=== PATIENT | male | born 1980 | race Caucasian/White ===

== ENCOUNTER 2017-06-16 16:59 | Emergency (ER) | payer BC ==
--- NOTE | 2017-06-16 17:18 | EDM.PDOC ---
ED HPI GENERAL MEDICAL PROBLEM - General Chief Complaint: Upper Extremity Injury/Pain Stated Complaint: PAIN LT ANKLE Time Seen by Provider: 06/16/17 17:15 Source of Information: Reports: Patient History Limitations: Reports: No Limitations - History of Present Illness INITIAL COMMENTS - FREE TEXT/NARRATIVE: HISTORY AND PHYSICAL: History of present illness: Patient is a 36-year-old male who presents to the emergency room today with complaints of left ankle pain. He states he was coming down from the attic when he stepped down wrong and rolled his left ankle. Since that time he has had increased swelling and pain. Denies any numbness or tingling to the affected extremity. Review of systems: As per history of present illness and below otherwise all systems reviewed and negative. Past medical history: As per history of present illness and as reviewed below otherwise noncontributory. Surgical history: As per history of present illness and as reviewed below otherwise noncontributory. Social history: No reported history of drug or alcohol abuse. Family history: As per history of present illness and as reviewed below otherwise noncontributory. Physical exam: General: Developed and well-nourished 36-year-old male. Alert and oriented. Nontoxic appearing and in no acute distress. HEENT: Atraumatic, normocephalic, pupils equal and reactive bilaterally, negative for conjunctival pallor or scleral icterus, mucous membranes moist, throat clear, neck supple, nontender, trachea midline. No drooling or trismus noted. No meningeal signs Lungs: Clear to auscultation, breath sounds equal bilaterally, chest nontender. Heart: S1S2, regular rate and rhythm without overt murmur Abdomen: Soft, nondistended, nontender. Negative for masses or hepatosplenomegaly. Negative for costovertebral tenderness. Pelvis: Stable nontender. Genitourinary: Deferred. Rectal: Deferred. Skin: Intact, warm, dry. No lesions or rashes noted. Extremities: Moves all extremities per self without difficulty or deficits. Soft tissue swelling to the lateral and medial right ankle. Strong pedal pulse. Capillary refill less than 3 seconds. Does not appear to have any Achilles tendon involvement. negative for cords or calf pain. Neurovascular unremarkable. Neuro: Awake, alert, oriented. Cranial nerves II through XII unremarkable. Cerebellum unremarkable. Motor and sensory unremarkable throughout. Exam nonfocal. Notes: X-ray shows no evidence of fracture or dislocation. We'll place him in a stirrup splint and crutches. Supportive care measures were reviewed. Encouraged him to follow-up with or so next week. He voices understanding and is agreeable to plan of care. He denies any questions at this time Diagnostics: Xray Therapeutics: Ice, Stirrup Splint, Crutches Impression: Left ankle injury Plan: 1. Rest, ice, elevate the affected extremity. 2. Tylenol and/or ibuprofen as needed for pain management. 3. Please use the stirrup splint and crutches over the next 2-5 days. 4. Follow-up with the orthopedic provider next week. Return to the ED as needed and as discussed. Definitive disposition and diagnosis as appropriate pending reevaluation and review of above. left ankle Pain Score (Numeric/FACES): 7 - Related Data Allergies Allergy/AdvReac Type Severity Reaction Status Date / Time No Known Allergies Allergy Verified 06/16/17 17:07 Home Meds: Home Meds Albuterol [Proair HFA] 2 puff INH ASDIRECTED PRN 05/10/15 [History] Fluticasone/Salmeterol [Advair 250-50 Diskus] 2 each IH DAILY 06/16/17 [History] Past Medical History HEENT History: Reports: None Cardiovascular History: Reports: None Respiratory History: Reports: Asthma Gastrointestinal History: Reports: None Genitourinary History: Reports: None Musculoskeletal History: Reports: None Neurological History: Reports: None Psychiatric History: Reports: None Endocrine/Metabolic History: Reports: None Hematologic History: Reports: None Immunologic History: Reports: None Oncologic (Cancer) History: Reports: None Dermatologic History: Reports: None - Infectious Disease History Infectious Disease History: Reports: Chicken Pox, MRSA Social & Family History - Family History Family Medical History: Noncontributory - Tobacco Use Smoking Status *Q: Never Smoker - Alcohol Use Days Per Week of Alcohol Use: 7 Number of Drinks Per Day: 2 Total Drinks Per Week: 14 - Recreational Drug Use Recreational Drug Use: No Review of Systems - Review of Systems Review Of Systems: ROS reveals no pertinent complaints other than HPI. ED EXAM, GENERAL - Physical Exam Exam: See Below (See dictation) Course - Vital Signs Last Recorded V/S: Last Vital Signs Temp 98.2 F 06/16/17 17:08 Pulse 80 06/16/17 17:08 Resp 18 06/16/17 17:08 BP 147/93 H 06/16/17 17:08 Pulse Ox 97 06/16/17 17:08 - Orders/Labs/Meds Orders: Active Orders 24 hr Category Date Time Status Ankle Min 3V Lt [CR] Stat Exams 06/16/17 17:13 Taken DME for Discharge [COMM] Stat Oth 06/16/17 18:05 Ordered Departure - Departure Time of Disposition: 18:12 Disposition: Home, Self-Care 01 Clinical Impression: Left ankle injury Qualifiers: Encounter type: initial encounter Qualified Code(s): S99.912A - Unspecified injury of left ankle, initial encounter - Discharge Information Referrals: Waqas Fleming MD [Primary Care Provider] - Forms: ED Department Discharge Additional Instructions: The following information is given to patients seen in the emergency department who are being discharged to home. This information is to outline your options for follow-up care. We provide all patients seen in our emergency department with a follow-up referral. The need for follow-up, as well as the timing and circumstances, are variable depending upon the specifics of your emergency department visit. If you don't have a primary care physician on staff, we will provide you with a referral. We always advise you to contact your personal physician following an emergency department visit to inform them of the circumstance of the visit and for follow-up with them and/or the need for any referrals to a consulting specialist. The emergency department will also refer you to a specialist when appropriate. This referral assures that you have the opportunity for follow-up care with a specialist. All of these measure are taken in an effort to provide you with optimal care, which includes your follow-up. Under all circumstances we always encourage you to contact your private physician who remains a resource for coordinating your care. When calling for follow-up care, please make the office aware that this follow-up is from your recent emergency room visit. If for any reason you are refused follow-up, please contact the [facility] Emergency Department at and asked to speak to the emergency department charge nurse. [facility] Primary Care [address] [place] [id number] [facility] Specialty Care - Orthopedic Clinic Professional [address], [address] [place] [address] 1. Rest, ice, elevate the affected extremity. 2. Tylenol and/or ibuprofen as needed for pain management. [place] for moderate to sever pain. No driving with this medication as it may cause drowsiness. 3. Please use the stirrup splint and crutches over the next 2-5 days. 4. Follow-up with the orthopedic provider next week. Return to the ED as needed and as discussed. - My Orders Last 24 Hours: My Active Orders 06/16/17 18:05 DME for Discharge [COMM] Stat - Assessment/Plan Last 24 Hours: My Active Orders 06/16/17 18:05 DME for Discharge [COMM] Stat
[2017-06-16 18:40] VITALS: BP 125/73
--- NOTE | 2017-06-17 13:50 | CR ---
EXAM DATE: 06/16/17 PATIENT'S AGE: 36 Patient: CALVIN DIXON Facility: [place], [place] Site . Site : [id number] Study: XRay Extremity Left [id number]/15/2018 5:37:07 PM Ordering Physician: Doctor Quick Final Report: 3 VIEWS left ankle INDICATION: Injury. IMPRESSION: Minimal spur at the medial malleolus. No visualized fracture. Alignments anatomic. Joint spaces unremarkable. Dictated by Calderon Hines MD @ Jun 16 2017 5:53PM (Electronic Signature) Report Signed by Proxy. SINGH
== END 2017-06-16 18:40 | disposition home or self-care (01) ==
LOC: MW.ED 16:59
DX: S99.912A Unspecified injury of left ankle, initial encounter (principal); J45.909 Unspecified asthma, uncomplicated; Z79.899 Other long term (current) drug therapy; X50.1XXA Overexertion from prolonged static or awkward postures, initial encounter
CPT/HCPCS: 73610-26-LT; 73610-LT; 99283

== ENCOUNTER 2019-02-24 21:29 | Emergency (ER) | payer OTHER ==
[2019-02-24] MEDS ORDERED: Diphtheria,Pertussis(Acell),Tetanus Vaccine 0.5 ML Syringe IM ONE (21:31)
[2019-02-24 22:01] VITALS: BP 163/102; PULSE 85
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
== END 2019-02-24 22:23 | disposition home or self-care (01) ==
LOC: MW.ED 21:29
DX: Z77.21 Contact with and (suspected) exposure to potentially hazardous body fluids (principal); J45.909 Unspecified asthma, uncomplicated; Z79.899 Other long term (current) drug therapy; Z23 Encounter for immunization
CPT/HCPCS: 36415; 86706; 86803; 87340; 87389; 90471; 90715; 99282; 99283-25

== ENCOUNTER 2019-04-29 20:39 | Emergency (ER) | payer OTHER ==
--- NOTE | 2019-04-29 20:53 | EDM.PDOC ---
ED [facility] GENERAL MEDICAL PROBLEM - General Chief Complaint: Head Injury Stated Complaint: FELL Time Seen by Provider: 04/29/19 20:49 Source of Information: Reports: Patient, Family History Limitations: Reports: No Limitations - History of Present Illness INITIAL COMMENTS - FREE TEXT/NARRATIVE: Patient is 38-year-old male with no significant past medical history presenting with chief complaint of head trauma. Patient was curling earlier today slipped on the ice and hit the back of his head. Suffered no loss of consciousness. He was present with father who witnessed the fall. Soon after the fall the patient exhibited some confusion and repetitive questioning. Patient had no episodes of vomiting. Patient complains of headache right now but no other bodily injury. Patient's was called by father who brought the patient into the emergency room. Pmhx: None Pshx: None Family Hx: noncontributory Smoking history? no Etoh use? none Drug use? none In addition to that documented in the HPI above, the additional ROS was obtained : Constitutional: Denies fevers or chills Eyes: Denies vision changes ENMT: Denies sore throat CV: Denies chest pain Resp: Denies SOB GI: Denies vomiting or diarrhea : Denies painful urination MSK: No traumatic injuries to the joints. Skin: Denies new rashes Neuro: Denies new numbness or tingling or weakness Endocrine: Denies unexpected weight loss Heme: Denies bleeding disorders GENERAL: Lying on bed grabbing at his head with hand SKIN: Warm and well perfused. No rashes, bruises, discolorations or abrasions. HEAD: Atraumatic, normocephalic without edema, discoloration or evidence of trauma. Facial bones without deformities or tenderness. EYES: PERRL. No scleral icterus or conjunctival injection. Extraocular muscles intact without nystagmus or diplopia. No proptosis or enophthalmos. EARS: Normal appearing pinnae. No hemotympanum. NOSE: No discharge, tenderness, laxity. No nasal septal hematoma. MOUTH: No malocclusion or trismus. Moist mucus membranes without blood. Posterior pharynx without erythema or exudate. NECK: Trachea midline. No discolorations or edema. No midline cervical spinal tenderness. Full range of motion of the neck. CV: Regular rate and rhythm, Normal s1 and s2. No murmurs, rubs, or gallops. PV: Radial pulses 2+ bilaterally and symmetric. Dorsalis pedis pulses 2+ bilaterally and symmetric. 2+ capillary refill. No extremity edema. CHEST: No abrasions or ecchymosis. Chest symmetric with respirations. No chest wall tenderness. No crepitus. No step offs. Lungs are clear to auscultation bilaterally. No rales, rhonchi, wheezing or stridor. ABDOMEN: No ecchymosis or abrasions. Soft, nondistended, nontender. Bowel tones normoactive. No masses or organomegaly. BACK: No abrasions, skin openings, or ecchymosis. Spine without bony tenderness , no step offs. PELVIC: Pelvis stable, nontender to lateral compression and palpation of symphysis pubis. MSK: No gross deformities or discolorations or lesions. Tolerates full range of motion of extremities without tenderness. NEURO: Alert and oriented to person and not to date or time or location. GCS 15. CN II-XII intact. Sensation grossly intact. Strength 5/5 in bilateral UE and LE. Assessment and plan: Patient is 38-year-old male with history of head trauma complaining of headache. Patient cervical spine is cleared by German CT rules. Patient is only complaining of headache and has some mild confusion which has improved while in the emergency department. CT of the brain was negative for any acute intracranial hemorrhage. Patient will be discharged home with the diagnosis of likely concussion. 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 Patient educated and given return precautions. - Related Data Allergies Allergy/AdvReac Type Severity Reaction Status Date / Time No Known Allergies Allergy Verified 02/24/19 21:51 Home Meds: Home Meds Albuterol [Proair HFA] 2 puff INH ASDIRECTED PRN 05/10/15 [History] Fluticasone/Salmeterol [Advair 250-50 Diskus] 2 each IH DAILY 06/16/17 [History] Past Medical History HEENT History: Reports: None Cardiovascular History: Reports: None Respiratory History: Reports: Asthma Gastrointestinal History: Reports: None Genitourinary History: Reports: None Musculoskeletal History: Reports: None Neurological History: Reports: None Psychiatric History: Reports: None Endocrine/Metabolic History: Reports: None Hematologic History: Reports: None Immunologic History: Reports: None Oncologic (Cancer) History: Reports: None Dermatologic History: Reports: None - Infectious Disease History Infectious Disease History: Reports: Chicken Pox, MRSA Social & Family History - Family History Family Medical History: Noncontributory ED ROS GENERAL - Review of Systems Review Of Systems: See Below ED EXAM, HEAD INJURY - Physical Exam Exam: See Below Course - Vital Signs Last Recorded V/S: Last Vital Signs Temp 36.6 C 04/29/19 20:40 Pulse 86 04/29/19 20:40 Resp 18 04/29/19 20:40 BP 171/99 H 04/29/19 20:40 Pulse Ox 98 04/29/19 20:40 - Orders/Labs/Meds Meds: Medications Discontinued Medications Generic Name Dose Route Start Last Admin Trade Name Finnq PRN Reason Stop Dose Admin Ketorolac Tromethamine 30 mg 04/29/19 21:38 04/29/19 21:57 Toradol IM 04/29/19 21:39 30 mg ONETIME ONE Administration Departure - Departure Time of Disposition: 22:01 Disposition: Home, Self-Care 01 Clinical Impression: Concussion injury of brain - Discharge Information Instructions: Concussion, Adult Referrals: Jersey Shook MD [Primary Care Provider] - Forms: ED Department Discharge Sepsis Event Note - Focused Exam Vital Signs: Vital Signs Temp Pulse Resp BP Pulse Ox 04/29/19 20:40 36.6 C 86 18 171/99 H 98 Date Exam was Performed: 04/29/19 Time Exam was Performed: 21:59
--- NOTE | 2019-04-29 21:23 | CT ---
INDICATION: Trauma TECHNIQUE: CT head without contrast. COMPARISON: MRI brain 06/18/2008 FINDINGS: CSF spaces: Within normal limits for age. Brain parenchyma: The wyatt-white differentiation is normal. No sign of mass, hemorrhage, or midline shift. Skull base and calvarium: The visualized paranasal sinuses and mastoid air cells demonstrate no acute or significant findings. The visualized orbits are grossly unremarkable. No skull fractures. IMPRESSION: Unremarkable noncontrast head CT. Please note that all CT scans at this facility use dose modulation, iterative reconstruction, and/or weight-based dosing when appropriate to reduce radiation dose to as low as reasonably achievable. Dictated by Waqas Ramon MD @ Apr 29 2019 9:11PM Signed by Dr. Waqas Ramon @ Apr 29 2019 9:22PM
[2019-04-29] MEDS ORDERED: Ketorolac 30 MG/ML SDV IM ONE (21:38)
[2019-04-29 22:39] VITALS: BP 141/91; PULSE 80
== END 2019-04-29 22:41 | disposition home or self-care (01) ==
LOC: MW.ED 20:39
DX: S06.0X9A Concussion with loss of consciousness of unspecified duration, initial encounter (principal); J45.909 Unspecified asthma, uncomplicated; W00.0XXA Fall on same level due to ice and snow, initial encounter
CPT/HCPCS: 70450; 96372; 99284; J1885

== ENCOUNTER 2019-08-03 19:05 | Emergency (ER) | payer OTHER ==
[2019-08-03] MEDS ORDERED: Bupivacaine 0.5% 30 ML SDV INFILT ONE (19:36)
--- NOTE | 2019-08-03 19:40 | EDM.PDOC ---
ED HPI GENERAL MEDICAL PROBLEM - General Chief Complaint: Head Injury Stated Complaint: NOSE BLEED Time Seen by Provider: 08/03/19 19:10 Source of Information: Reports: Patient History Limitations: Reports: No Limitations - History of Present Illness INITIAL COMMENTS - FREE TEXT/NARRATIVE: This patient is a 38-year-old male with no pertinent past medical history presenting with a facial injury. Patient was playing a softball match when he was struck in the nose by a line drive approximately 1 hour prior to arrival. The ball struck him in the center of his nose. He did not fall to the ground or lose consciousness. He arrives to the emergency department complaining of pain and swelling to the nose with some bilateral epistaxis. He denies any visual disturbance, headache, facial numbness or weakness, or extremity numbness or weakness. No medications prior to arrival, no other complaints. Tetanus immunization status is up-to-date per the patient. - Related Data Allergies Allergy/AdvReac Type Severity Reaction Status Date / Time No Known Allergies Allergy Verified 08/03/19 19:29 Home Meds: Home Meds Albuterol [Proair HFA] 2 puff INH ASDIRECTED PRN 05/10/15 [History] Fluticasone Propion/Salmeterol [Advair 250-50 Diskus] 2 each IH DAILY 06/16/17 [ History] Past Medical History - Past Health History Medical/Surgical History: Denies Medical/Surgical History HEENT History: Reports: None Cardiovascular History: Reports: None Respiratory History: Reports: Asthma Gastrointestinal History: Reports: None Genitourinary History: Reports: None Musculoskeletal History: Reports: None Neurological History: Reports: None Psychiatric History: Reports: None Endocrine/Metabolic History: Reports: None Insulin Pump Model and Weight Reduction Specialist: NA Hematologic History: Reports: None Immunologic History: Reports: None Oncologic (Cancer) History: Reports: None Dermatologic History: Reports: None - Infectious Disease History Infectious Disease History: Reports: None - Past Surgical History Head Surgeries/Procedures: Reports: None Social & Family History - Family History Family Medical History: Noncontributory - Tobacco Use Smoking Status *Q: Former Smoker Used Tobacco, but Quit: Yes Month/Year Tobacco Last Used: 2007 - Caffeine Use Caffeine Use: Reports: Coffee - Recreational Drug Use Recreational Drug Use: No ED ROS GENERAL - Review of Systems Review Of Systems: See Below HEENT: Reports: Nosebleed, Nose Pain. Denies: Ear Discharge, Ear Pain, Eye Discharge, Eye Pain, Sinus Problem, Vision Change Skin: Reports: Wound Neurological: Denies: Confusion, Headache, Numbness, Seizure, Syncope, Tingling , Trouble Speaking, Change in Speech, Gait Disturbance ED EXAM, HEAD INJURY - Physical Exam Exam: See Below Text/Narrative:: Vital signs reviewed. Nursing notes reviewed. Constitutional: Awake, alert, non-distressed. Eyes: EOMI, conjunctiva normal, no discharge, no scleral icterus. Ears, Nose, Throat: External ears and normal, moist oral mucosa. Edema and ecchymosis to the center of the nose, which does not appear deviated. Dried blood in both nostrils. No evidence of septal hematoma. No exposed cartilage. TMs clear bilaterally. No raccoons eyes or lopez sign. One approximately 0.7 cm horizontal linear laceration to the right side of the bridge of the nose , 1 approximately 0.6 cm vertical linear laceration to the center of the nose. Cardiovascular: 2+ radial pulse, capillary refill less than 2 seconds. Pulmonary: normal work of breathing, no accessory muscle use. Musculoskeletal: No deformities. Integumentary: Appropriate color for ethnicity, warm, dry, no pallor or jaundice , no rash. Neurologic: Alert, answering questions appropriately, normal speech, no facial droop, moving all extremities well. Cranial nerves II through XII intact. No evidence of facial anesthesia. Psychiatric: Appropriate mood and affect, normal thought process. ED LACERATION/WOUND & ROSY PROC - Laceration/Wound Repair Anterior Nose Lac/wound length in cm: 1.3 Appearance: Superficial Distal NVT: Neuro & Vascular Intact Anesthetic Type: Local Local Anesthesia - Bupivicaine (Marcaine): 0.5% Plain Local Anesthetic Volume: 2cc Skin Prep: Saline Exploration/Debridement/Repair: Wound Explored, In a Bloodless Field, No Foreign Material Found Closed with: Sutures Suture Size: 5-0 # of Sutures: 3 Drain Placement: No Sterile Dressing Applied: Nurse Tetanus Status Addressed: Yes Complications: No Course - Vital Signs Text/Narrative:: Patient hemodynamically stable, afebrile, well-appearing, looks nontoxic. Differential diagnosis includes but is not limited to: Nasal bone fracture, septal hematoma, facial bone fractures, sinus fractures, dental trauma, nerve injury, etc. CT maxillofacial study demonstrated a right nasal bone fracture and a right nasal septal fracture, but no evidence of any other facial bone or sinus fractures. No neurologic deficits noted on examination of the cranial nerves. No dental trauma or malocclusion, normal movement of the jaw. Able to breathe through both nostrils, normal phonation, no evidence of respiratory compromise, handling secretions well. Tetanus immunization status is up-to-date per the patient. Underwent laceration repair as detailed in procedure documentation, this was uncomplicated. We will plan to discharge home with instructions for 5 to 7-day suture removal and follow-up with ENT clinic as an outpatient. Over-the- counter acetaminophen and ibuprofen for pain. Strict emergency department return precautions were provided, patient indicated understanding. All questions were answered prior to departure. Discharged in good condition. - Orders/Labs/Meds Orders: Active Orders 24 hr Category Date Time Status Procedure Tray at Bedside [RC] ASDIRECTED Care 08/03/19 19:36 Active Meds: Medications Discontinued Medications Generic Name Dose Route Start Last Admin Trade Name Marisa PRN Reason Stop Dose Admin Bupivacaine HCl 10 ml 08/03/19 19:36 Marcaine 0.5% INFILT 08/03/19 19:37 ONETIME ONE Bupivacaine HCl Confirm 08/03/19 19:49 Sensorcaine-Mpf 0.5% Administered 08/03/19 19:50 Dose 10 ml .ROUTE .STK-MED ONE Departure - Departure Time of Disposition: 21:00 Disposition: Home, Self-Care 01 Condition: Good Clinical Impression: Laceration of nose without foreign body Qualifiers: Encounter type: initial encounter Qualified Code(s): S01.21XA - Laceration without foreign body of nose, initial encounter Nasal bone fracture Qualifiers: Encounter type: initial encounter Fracture type: closed Qualified Code(s): S02.2XXA - Fracture of nasal bones, initial encounter for closed fracture Nasal septum fracture Qualifiers: Encounter type: initial encounter Fracture type: closed Qualified Code(s): S02.2XXA - Fracture of nasal bones, initial encounter for closed fracture - Discharge Information *PRESCRIPTION DRUG MONITORING PROGRAM REVIEWED*: Not Applicable *COPY OF PRESCRIPTION DRUG MONITORING REPORT IN PATIENT BUDDY: Not Applicable Instructions: Laceration Care, Adult, Nasal Fracture, Sutured Wound Care Referrals: [facility] - Family Practice [Provider Group] - 1 Week (As needed) Forms: ED Department Discharge Additional Instructions: Shahid Acosta MD (ENT Surgeon) - Closest available. Follow-up in 1 to 2 weeks as needed for nasal bone and nasal septal fractures. [address] [place] [address] P: [phone] F: [phone] Thank you for choosing the [facility] emergency department in [place] for your medical needs today. It was a pleasure caring for you. You were seen in the emergency department for nasal injury. Your CT scans demonstrated fractures of your nasal bone and your nasal septum. Sutures were placed and will need to be removed in 5 to 7 days. I recommend over-the- counter acetaminophen and ibuprofen for pain. I would follow-up with an ENT surgeon the next 1 to 2 weeks for follow-up care of your nasal fractures. Please return the emergency department immediately if your symptoms worsen or if you feel worse. The following information is given to patients seen in the emergency department who are being discharged. This information is to outline your options for follow -up care. We provide all patients seen in our emergency department with a follow -up referral. The need for follow-up, as well as the timing and circumstances, are variable depending upon the specifics of your emergency department visit. If you don't have a primary care physician on staff, we will provide you with a referral. We always advise you to contact your personal physician following an emergency department visit to inform them of the circumstance of the visit and for follow-up with them and/or the need for any referrals to a consulting specialist. The emergency department will also refer you to a specialist when appropriate. This referral assures that you have the opportunity for follow-up care with a specialist. All of these measure are taken in an effort to provide you with optimal care, which includes your follow-up. Under all circumstances we always encourage you to contact your private physician who remains a resource for coordinating your care. When calling for follow-up care, please make the office aware that this follow-up is from your recent emergency room visit. If for any reason you are refused follow-up, please contact the [facility] Emergency Department at and asked to speak to the emergency department charge nurse. If you do not have a primary care physician that is caring for you, you can contact these clinics below to set up an appointment to establish care: [facility] - [facility] [address] [place] [id number] [facility] [address] [place] [id number] Sepsis Event Note - Focused Exam Date Exam was Performed: 08/03/19 Time Exam was Performed: 20:58 - My Orders Last 24 Hours: My Active Orders 08/03/19 19:36 Procedure Tray at Bedside [RC] ASDIRECTED - Assessment/Plan Last 24 Hours: My Active Orders 08/03/19 19:36 Procedure Tray at Bedside [RC] ASDIRECTED
[2019-08-03] MEDS ORDERED: Bupivacaine 0.5% 10 ML SDV ONE (19:49)
--- NOTE | 2019-08-03 20:19 | CT ---
CT maxillofacial Technique: Multiple axial sections were obtained from above the frontal sinuses inferiorly through the mandible. Reconstructed coronal and sagittal images were obtained. No intravenous contrast was utilized. Findings: Mucosal thickening as well as probable retention cysts are seen within both maxillary sinuses. Mild mucosal thickening is seen within the ethmoid sinuses. Large aron bullosa is noted within the left middle nasal turbinate with smaller right aron bullosa. Nasal septal deviation is seen. Slightly comminuted nasal bone fracture is noted with mild displacement. Nondisplaced fracture is also noted within the nasal septum. Soft tissue density is noted within the nasal cavity which is felt to relate to the trauma. Soft tissue swelling is noted. Right and left globes are symmetric. No retro-bulbar abnormality is seen. No additional facial bone fracture is seen. Mastoid sinuses are clear. Impression: 1. Mildly comminuted and mildly displaced nasal bone fracture. 2. Chronic paranasal sinus findings. 3. Increased density within the nasal cavity compatible with change from nasal bone trauma. 4. Nondisplaced nasal septal fracture believed to be present. Diagnostic code #3 This report was dictated in MDT
[2019-08-03 21:10] VITALS: BP 123/87; PULSE 80
== END 2019-08-03 21:17 | disposition home or self-care (01) ==
LOC: MW.ED 19:05
DX: S02.2XXA Fracture of nasal bones, initial encounter for closed fracture (principal); Z87.891 Personal history of nicotine dependence; J45.909 Unspecified asthma, uncomplicated; W21.07XA Struck by softball, initial encounter; Y93.64 Activity, baseball
CPT/HCPCS: 12011; 70486; 99284; J3490; 99283

== ENCOUNTER 2019-12-17 09:31 | Day surgery (SDC) | payer OTHER ==
[~2019-12-17 09:31] MED LIST: Furosemide 40 MG/4 ML VIAL ONE; Glycopyrrolate 0.2 MG/ML SDV ONE; Ketorolac 30 MG/ML SDV ONE; Lactated Ringers 1,000 ML IV SCH; Lidocaine 2% 5 ML SDV ONE; Midazolam 1 MG/ML 2 ML SDV ONE; Ondansetron 4 MG/2 ML SDV ONE; Propofol 200 MG/20 ML SDV ONE; Rocuronium Bromide 50 MG/5 ML Syringe ONE; Sodium Chloride 0.9% 10 ML SDV IV PRN; Sodium Chloride 0.9% 10 ML Syringe FLUSH PRN; Sodium Chloride 0.9% 2.5 ML Syringe FLUSH PRN; fentaNYL 250 MCG/5 ML SDV ONE
--- NOTE | 2019-12-17 09:59 | PCM.PREANE ---
Preanesthetic Assessment - Anesthesia/Transfusion/Family Hx Anesthesia History: Prior Anesthesia Without Reaction Family History of Anesthesia Reaction: No Transfusion History: No Prior Transfusion(s) Intubation History: Unknown - Review of Systems General: No Symptoms Pulmonary: No Symptoms Cardiovascular: No Symptoms Gastrointestinal: Abdominal Pain, Other (cholelythiasis, increased liver enzymes) Neurological: No Symptoms Other: Reports: None - Physical Assessment Height: 6 ft 1 in Weight: 145.15 kg ASA Class: 2 Mental Status: Alert & Oriented x3 Airway Class: Mallampati = 2 Dentition: Reports: Normal Dentition, Osmond(s) (gold x1 right upper (back)) Thyro-Mental Finger Breadths: 3 Mouth Opening Finger Breadths: 3 ROM/Head Extension: Full Lungs: Clear to Auscultation, Normal Respiratory Effort Cardiovascular: Regular Rate, Regular Rhythm - Allergies Allergies/Adverse Reactions: Allergies Allergy/AdvReac Type Severity Reaction Status Date / Time seasonal Allergy Itching Uncoded 12/11/19 15:13 - Blood Blood Available: No - Anesthesia Plan Pre-Op Medication Ordered: None - Acknowledgements Anesthesia Type Planned: MAC Pt an Appropriate Candidate for the Planned Anesthesia: Yes Alternatives and Risks of Anesthesia Discussed w Pt/Guardian: Yes Pt/Guardian Understands and Agrees with Anesthesia Plan: Yes PreAnesthesia Questionnaire - Past Health History Medical/Surgical History: Denies Medical/Surgical History HEENT History: Reports: None Other HEENT History: states in August 2019 fractured his nose Cardiovascular History: Reports: None Respiratory History: Reports: Asthma (mild, seasonal) Gastrointestinal History: Reports: None Genitourinary History: Reports: None Musculoskeletal History: Reports: None Neurological History: Reports: None Other Neuro History: states in May 2019 took a fall and was unconsious for 3 hours and got a concussion and has had occasional migraines since then Psychiatric History: Reports: Anxiety Endocrine/Metabolic History: Reports: Obesity/BMI 30+ (BMI 42.2) Hematologic History: Reports: None Immunologic History: Reports: None Oncologic (Cancer) History: Reports: None Dermatologic History: Reports: None - Infectious Disease History Infectious Disease History: Reports: None - Past Surgical History Head Surgeries/Procedures: Reports: None HEENT Surgical History: Reports: None GI Surgical History: Reports: None Female Surgical History: Male Surgical History: Reports: Vasectomy Neurological Surgical History: Reports: None - SUBSTANCE USE Tobacco Use Status *Q: Former Tobacco User - HOME MEDS Home Medications: Home Meds Albuterol [Proair HFA] 2 puff INH ASDIRECTED PRN 05/10/15 [History] Fluticasone Propion/Salmeterol [Advair 250-50 Diskus] 2 each IH BID 06/16/17 [History] Fexofenadine [Tamiko] 180 mg PO DAILY 12/11/19 [History] Multivitamin with Minerals [Multiple Vitamin] 1 tab PO DAILY 12/11/19 [History] - CURRENT (IN HOUSE) MEDS Current Meds: Current Medications Lactated Ringer's (Ringers, Lactated) 1,000 mls @ 125 mls/hr IV ASDIRECTED REDDY Sodium Chloride (Saline Flush) 10 ml FLUSH ASDIRECTED PRN PRN Reason: Keep Vein Open Sodium Chloride (Saline Flush) 2.5 ml FLUSH ASDIRECTED PRN PRN Reason: Keep Vein Open Sodium Chloride (Normal Saline) 10 ml IV ASDIRECTED PRN PRN Reason: IV Use Discontinued Medications Fentanyl (Sublimaze) Confirm Administered Dose 250 mcg .ROUTE .STK-MED ONE Stop: 12/17/19 08:44 Furosemide (Lasix) Confirm Administered Dose 40 mg .ROUTE .STK-MED ONE Stop: 12/17/19 08:49 Glycopyrrolate (Robinul) Confirm Administered Dose 0.8 mg .ROUTE .STK-MED ONE Stop: 12/17/19 08:47 Ketorolac Tromethamine (Toradol) Confirm Administered Dose 30 mg .ROUTE .STK-MED ONE Stop: 12/17/19 08:47 Lidocaine (Xylocaine-Mpf 2%) Confirm Administered Dose 5 ml .ROUTE .STK-MED ONE Stop: 12/17/19 08:47 Midazolam HCl (Versed 1 Mg/Ml) Confirm Administered Dose 2 mg .ROUTE .STK-MED ONE Stop: 12/17/19 08:43 Ondansetron HCl (Zofran) Confirm Administered Dose 4 mg .ROUTE .STK-MED ONE Stop: 12/17/19 08:47 Propofol (Diprivan 20 Ml) Confirm Administered Dose 200 mg .ROUTE .STK-MED ONE Stop: 12/17/19 08:43 Rocuronium [place] (Rocuronium [place]) Confirm Administered Dose 50 mg .ROUTE .STK-MED ONE Stop: 12/17/19 08:47
[2019-12-17] MEDS ORDERED: Propofol 200 MG/20 ML SDV ONE (10:49)
[2019-12-17] MEDS ORDERED: Midazolam 1 MG/ML 2 ML SDV ONE (10:49)
[2019-12-17] MEDS ORDERED: Glycopyrrolate 0.2 MG/ML SDV ONE (10:51)
--- NOTE | 2019-12-17 11:58 | PCM.OPNOTE ---
- General Post-Op/Procedure Note Date of Surgery/Procedure: 12/17/19 Operative Procedure(s): EGD with biopsy Findings: Normal appearing EGD Pre Op Diagnosis: Epigastric abdominal pain, nausea and vomiting Post-Op Diagnosis: same Anesthesia Technique: MAC Primary Surgeon: Keiko Styles Condition: Good
--- NOTE | 2019-12-17 12:19 | PCM.POSTAN ---
POST ANESTHESIA ASSESSMENT - MENTAL STATUS Mental Status: Alert, Oriented - VITAL SIGNS Vital Signs: Last Vital Signs Temp 35.9 C L 12/17/19 10:30 Pulse 91 12/17/19 12:05 Resp 15 12/17/19 12:05 BP 125/82 12/17/19 12:05 Pulse Ox 94 L 12/17/19 12:05 - RESPIRATORY Respiratory Status: Respiratory Rate WNL, Airway Patent, O2 Saturation Stable - CARDIOVASCULAR CV Status: Pulse Rate WNL, Blood Pressure Stable - GASTROINTESTINAL GI Status: No Symptoms - PAIN Pain Score: 0 - POST OP HYDRATION Hydration Status: Adequate & Stable - OBSERVATIONS Free Text/Narrative:: No anesthesia problems
--- NOTE | 2019-12-17 12:22 | PCM48HPAN ---
Post Anesthesia Note - EVALUATION WITHIN 48HRS OF ANESTHETIC Vital Signs in Normal Range: Yes Patient Participated in Evaluation: Yes Respiratory Function Stable: Yes Airway Patent: Yes Cardiovascular Function Stable: Yes Hydration Status Stable: Yes Pain Control Satisfactory: Yes Nausea and Vomiting Control Satisfactory: Yes Mental Status Recovered: Yes Vital Signs: Last Vital Signs Temp 35.9 C L 12/17/19 10:30 Pulse 91 12/17/19 12:05 Resp 15 12/17/19 12:05 BP 125/82 12/17/19 12:05 Pulse Ox 94 L 12/17/19 12:05 - COMMENTS/OBSERVATIONS Free Text/Narrative:: No anesthesia problems
[2019-12-17 13:42] VITALS: BP 132/86; PULSE 93
--- NOTE | 2019-12-17 19:09 | OR ---
SURGEON: KEIKO STYLES MD DATE OF PROCEDURE: 12/17/2019 PREOPERATIVE DIAGNOSES: Nausea, transaminitis, right upper quadrant pain. POSTOPERATIVE DIAGNOSES: Nausea, transaminitis, right upper quadrant pain. PROCEDURE PERFORMED: Diagnostic esophagogastroduodenoscopy with biopsies. PRIMARY SURGEON: Keiko Styles MD ANESTHESIA: MAC. INSTRUMENT USED: Olympus endoscope. EXTENT OF EXAM: To the second portion of duodenum. PREPARATION: Good. LIMITATIONS: None. INDICATIONS FOR EXAMINATION: The patient is a 39-year-old male who presented with a 1 month history of right upper quadrant pain as well as postprandial nausea and diaphoresis. Workup revealed transaminitis. As a part of the workup, the patient and I discussed performing diagnostic EGD. I explained the procedure, expected perioperative course, and the risks. He verbalized understanding and wishes to proceed. PROCEDURE IN DETAIL: The patient was brought into the endoscopy suite and placed in a beach chair position. A time-out was completed verifying the patient's name, age, date of , allergies, and procedure to be performed. Monitored anesthesia care was induced and continuous oxygen was provided via face mask throughout the procedure. A bite block was placed in the patient's mouth. A well-lubricated endoscope was placed in the patient's mouth and advanced under direct visualization to the second portion of duodenum. This appeared normal and a photograph was taken. The scope was then fully withdrawn while examining the color, texture, anatomy, and integrity of the mucosa of the upper GI tract. The patient's duodenum appeared normal and a photograph was taken. The scope was then brought into the stomach and a photograph was taken of the pylorus and GE junction. Both appeared anatomically normal. I saw no signs of gross inflammation or ulceration along the gastric mucosa. Biopsies were taken of the gastric antrum, body, and fundus and sent for histologic review and H. pylori testing. The scope was then brought into the distal esophagus. A photograph was taken of the Z-line. This appeared normal. The distal esophageal mucosa was pink and healthy with no evidence of esophagitis. The remainder of the esophagus was normal. The scope was removed and the procedure terminated. The patient tolerated the procedure well and was transferred to the PACU in stable condition. ENDOSCOPIC DIAGNOSIS: Normal esophagogastroduodenoscopy. RECOMMENDATIONS: The patient and I will be discussing a laparoscopic, possible open, cholecystectomy for possible biliary disease in the coming weeks. We will follow up with the patient regarding his biopsy results from today. VIRAL / BRUCE /[id number]
== END 2019-12-17 12:30 | disposition home or self-care (01) ==
LOC: MW.SDS 09:31
PROVIDERS: ATTEND Surgery
DX: K29.50 Unspecified chronic gastritis without bleeding (principal); R74.01 Elevation of levels of liver transaminase levels; F41.9 Anxiety disorder, unspecified; J45.909 Unspecified asthma, uncomplicated; K76.0 Fatty (change of) liver, not elsewhere classified; K80.20 Calculus of gallbladder without cholecystitis without obstruction; E66.9 Obesity, unspecified; Z79.899 Other long term (current) drug therapy; Z68.41 Body mass index [BMI] 40.0-44.9, adult; Z87.891 Personal history of nicotine dependence
CPT/HCPCS: 43239; 88305; 88312; J2250; J2704; J3490; J7120; J1885; J1940; J2001; J2405; J3010

== ENCOUNTER 2019-12-29 10:06 | Day surgery (SDC) | payer OTHER ==
[~2019-12-29 10:06] MED LIST changes: -Furosemide 40 MG/4 ML VIAL ONE; -Glycopyrrolate 0.2 MG/ML SDV ONE; -Ketorolac 30 MG/ML SDV ONE; -Lidocaine 2% 5 ML SDV ONE; -Midazolam 1 MG/ML 2 ML SDV ONE; -Ondansetron 4 MG/2 ML SDV ONE; -Propofol 200 MG/20 ML SDV ONE; -Rocuronium Bromide 50 MG/5 ML Syringe ONE; +ceFAZolin 2 GM in Premix Bag 1 BAG IV ONE; -fentaNYL 250 MCG/5 ML SDV ONE
[2019-12-29] MEDS ORDERED: Scopolamine 1.5 MG Transdermal Patch ONE (11:33)
--- NOTE | 2019-12-29 11:39 | PCM.PREANE ---
Preanesthetic Assessment - Anesthesia/Transfusion/Family Hx Anesthesia History: Prior Anesthesia Without Reaction Family History of Anesthesia Reaction: No Transfusion History: No Prior Transfusion(s) Intubation History: Unknown - Review of Systems General: No Symptoms Pulmonary: No Symptoms Cardiovascular: No Symptoms Gastrointestinal: No Symptoms Neurological: No Symptoms Other: Reports: None - Physical Assessment NPO Status Date: 12/28/19 Height: 6 ft 1 in Weight: 145.15 kg ASA Class: 3 Mental Status: Alert & Oriented x3 Airway Class: Mallampati = 2 Dentition: Reports: Normal Dentition ROM/Head Extension: Full Lungs: Clear to Auscultation, Normal Respiratory Effort Cardiovascular: Regular Rate, Regular Rhythm - Allergies Allergies/Adverse Reactions: Allergies Allergy/AdvReac Type Severity Reaction Status Date / Time seasonal Allergy Itching Uncoded 12/22/19 08:15 - Anesthesia Plan Pre-Op Medication Ordered: Other (scop patch x 12 hr) - Acknowledgements Anesthesia Type Planned: General Anesthesia Pt an Appropriate Candidate for the Planned Anesthesia: Yes Alternatives and Risks of Anesthesia Discussed w Pt/Guardian: Yes Pt/Guardian Understands and Agrees with Anesthesia Plan: Yes Additional Comments: PMH: MO, denies dx of RICHY, asthma- no recent exac PLAN: get PreAnesthesia Questionnaire - Past Health History Medical/Surgical History: Denies Medical/Surgical History HEENT History: Reports: None Other HEENT History: states in August 2019 fractured his nose Cardiovascular History: Reports: None Respiratory History: Reports: Asthma Gastrointestinal History: Reports: None Genitourinary History: Reports: None Musculoskeletal History: Reports: None Neurological History: Reports: None Other Neuro History: states in May 2019 took a fall and was unconsious for 3 hours and got a concussion and has had occasional migraines since then Psychiatric History: Reports: Anxiety Endocrine/Metabolic History: Reports: Obesity/BMI 30+ Hematologic History: Reports: None Immunologic History: Reports: None Oncologic (Cancer) History: Reports: None Dermatologic History: Reports: None - Infectious Disease History Infectious Disease History: Reports: None - Past Surgical History GI Surgical History: Reports: None - SUBSTANCE USE Tobacco Use Status *Q: Former Tobacco User - HOME MEDS Home Medications: Home Meds Albuterol [Proair HFA] 2 puff INH ASDIRECTED PRN 05/10/15 [History] Fluticasone Propion/Salmeterol [Advair 250-50 Diskus] 2 each IH BID 06/16/17 [History] Fexofenadine [Tamiko] 180 mg PO DAILY 12/11/19 [History] Multivitamin with Minerals [Multiple Vitamin] 1 tab PO DAILY 12/11/19 [History] Scopolamine 1 patch TRDERM ONETIME 12/22/19 [History] - CURRENT (IN HOUSE) MEDS Current Meds: Current Medications Lactated Ringer's (Ringers, Lactated) 1,000 mls @ 125 mls/hr IV ASDIRECTED REDDY Sodium Chloride (Saline Flush) 2.5 ml FLUSH ASDIRECTED PRN PRN Reason: Keep Vein Open Sodium Chloride (Normal Saline) 10 ml IV ASDIRECTED PRN PRN Reason: IV Use Sodium Chloride (Saline Flush) 10 ml FLUSH ASDIRECTED PRN PRN Reason: Keep Vein Open Discontinued Medications Cefazolin Sodium/Dextrose 2 gm (/ Premix) 50 mls @ 100 mls/hr IV ONETIME ONE Stop: 12/28/19 14:26 Scopolamine (Transderm-Scop) Confirm Administered Dose 1.5 mg .ROUTE .STK-MED ONE Stop: 12/29/19 11:34
[2019-12-29] MEDS ORDERED: Ondansetron 4 MG/2 ML SDV ONE (13:03)
[2019-12-29] MEDS ORDERED: Glycopyrrolate 0.2 MG/ML SDV ONE ×2 (13:03→13:41)
[2019-12-29] MEDS ORDERED: Lidocaine 2% 5 ML SDV ONE (13:03)
[2019-12-29] MEDS ORDERED: Propofol 200 MG/20 ML SDV ONE ×2 (13:04→13:56)
[2019-12-29] MEDS ORDERED: Midazolam 1 MG/ML 2 ML SDV ONE (13:04)
[2019-12-29] MEDS ORDERED: fentaNYL 250 MCG/5 ML SDV ONE (13:04)
[2019-12-29] MEDS ORDERED: Bupivacaine 0.5% 30 ML SDV ONE (13:10)
[2019-12-29] MEDS ORDERED: Sodium Chloride 0.9% 20 ML ONE (13:37)
[2019-12-29] MEDS ORDERED: ceFAZolin 1 GM Vial ONE (13:37)
[2019-12-29] MEDS ORDERED: Rocuronium Bromide 50 MG/5 ML Syringe ONE (14:10)
[2019-12-29] MEDS ORDERED: fentaNYL 100 MCG/2 ML SDV ONE (14:50)
[2019-12-29] MEDS ORDERED: fentaNYL 100 MCG/2 ML SDV IVPUSH PRN (14:53)
[2019-12-29] MEDS ORDERED: Atropine 0.1 MG/ML 10 ML Syringe IVPUSH PRN ×2 (14:53)
[2019-12-29] MEDS ORDERED: Albuterol 0.083% 2.5 MG/3 ML Neb Soln NEB PRN (14:53)
[2019-12-29] MEDS ORDERED: 50% Dextrose in Water 50 ML Syringe IVPUSH PRN (14:53)
[2019-12-29] MEDS ORDERED: EPINEPHrine 1:10,000 1 MG/10 ML Syringe IVPUSH PRN (14:53)
[2019-12-29] MEDS ORDERED: Naloxone 0.4 MG/ML Syringe IVPUSH PRN (14:53)
--- NOTE | 2019-12-29 15:04 | PCM.OPNOTE ---
- General Post-Op/Procedure Note Date of Surgery/Procedure: 12/29/19 Operative Procedure(s): Laparoscopic cholecystectomy Findings: Chronically inflamed appearing gallbladder Pre Op Diagnosis: Symptomatic cholelithiasis Post-Op Diagnosis: Chronic cholecystitis Anesthesia Technique: General ET Tube Primary Surgeon: Keiko Styles Fluid Replacement, Intraop: 1,300 Output, Urine Amount: 400 EBL in mLs: 10 Condition: Good
[2019-12-29] MEDS ORDERED: HYDROmorphone 2 MG/ML Syringe IVPUSH PRN (16:57)
[2019-12-29] MEDS ORDERED: Haloperidol Lactate 5 MG/ML SDV IM ONE (16:58)
--- NOTE | 2019-12-29 17:03 | PCM.SN.2 ---
- Free Text/Narrative Note: Patient is having difficulty keeping his oxygen saturations up post operatively. He is currently on oxygen via face mask and is 99% but remains fairly somnolent. He likely has undiagnosed sleep apnea. We will admit for capnography monitoring overnight.
--- NOTE | 2019-12-29 18:35 | OR ---
SURGEON: KEIKO NORMAN MD DATE OF PROCEDURE: 12/29/2019 PREOPERATIVE DIAGNOSIS: Symptomatic cholelithiasis. POSTOPERATIVE DIAGNOSIS: Chronic cholecystitis. PROCEDURE PERFORMED: Laparoscopic cholecystectomy. PRIMARY SURGEON: Keiko Norman MD. ANESTHESIA: General endotracheal anesthesia. FLUIDS: 1300 mL of crystalloid. ESTIMATED BLOOD LOSS: 10 mL. URINE OUTPUT: 400 mL. FINDINGS: Chronically inflamed appearing gallbladder. COMPLICATIONS: None. INDICATIONS: The patient is a 39-year-old male who presented to my office with right upper quadrant pain as well as transaminitis. Ultrasound showed a small 6-mm stone within the neck of the gallbladder. Given that his liver function tests were elevated but his bilirubin and alkaline phosphatase were not as elevated, I performed an MRCP. This showed no evidence of choledocholithiasis. The patient's liver function tests did improve with time and are now within normal limits. The decision was made to proceed with a laparoscopic, possible open, cholecystectomy. The patient and I discussed the procedure, the possibility of an open conversion, the expected perioperative course, and the risks including bleeding, infection, or damage to surrounding structures. He verbalized understanding and wishes to proceed. PROCEDURE IN DETAIL: The patient was brought into the OR and placed on the OR table in supine position. A time-out was completed verifying the patient's name, age, date of , allergies, and procedure to be performed. General endotracheal anesthesia was induced. The left arm was tucked to the patient's side and a Hahn catheter was placed. The abdomen was prepped and draped in usual standard fashion. I anesthetized the supraumbilical midline with 0.5% Marcaine plain. A 3-cm incision was made using a 15 blade along the supraumbilical midline. Cautery was used to dissect down to the level of subcutaneous fat. I bluntly dissected down to the level of the fascia. The fascia was elevated with Lida's and incised sharply with a curved Nagel scissors. Entry into the abdomen was palpated digitally. Stay sutures were placed on either side of the fascia using 0 Vicryl sutures. A 12 mm Joyce trocar was inserted in the abdomen and the abdomen insufflated. A 5 mm 30 degree scope was placed into the abdomen and I inspected the area underneath my initial trocar placement. No damage to surrounding structures was noted. The patient was placed into reverse Trendelenburg position and airplaned slightly to the left. 5 mm trocars were placed in the following locations under direct visualization; one in the epigastric area, one in the right flank, and one 2 fingerbreadths below the right subcostal margin in the midclavicular line. The dome of the gallbladder was grasped with an atraumatic grasper and elevated cranially. I identified the infundibulum. There was a large amount of peritoneal fat encased around the area. Using hook cautery, I scored the fat. I then bluntly dissected through the area. The tissue appeared chronically inflamed and edematous. I dissected out the cystic duct and artery and then dissected out the proximal one-third of the cystic plate. Once my critical view was achieved, a photograph was taken. I doubly clipped and ligated the cystic duct and artery. Using electrocautery, I then took down the remainder of the attachments of the gallbladder to the cystic plate. The gallbladder was then placed in an Endo Catch bag and removed through the 12 mm port site. The port was placed back in the abdomen and I inspected my operative field. There was a small amount of blood. This was suctioned out and the area irrigated. Electrocautery was used to achieve hemostasis along the cystic plate. Once hemostasis was achieved and there was no evidence of biliary drainage, the 5 mm trocars were removed and the abdomen allowed to desufflate. The 12 mm trocar was removed as well. The fascia at the supraumbilical port site was closed with the 0 Vicryl stay sutures. The subcutaneous fat layer was closed in layers of interrupted 3-0 Vicryl sutures. The skin was closed with a running 4-0 Monocryl stitch. The 5 mm trocar sites were closed with interrupted 4-0 Monocryl sutures. Steri-Strips and sterile dressings were applied. The patient tolerated the procedure well and was transferred to the PACU in stable condition. VIRAL BARRERA /[id number]
[2019-12-29] MEDS: Acetaminophen/oxyCODONE 325-10 MG Tab PO PRN (20:20)
[2019-12-30] MEDS ORDERED: HYDROmorphone 1 MG/ML Syringe IVPUSH PRN (07:11)
[2019-12-30] MEDS: Acetaminophen/oxyCODONE 325-10 MG Tab PO PRN (07:25)
--- NOTE | 2019-12-30 07:38 | PCM.SURGPN ---
- Patient Data Vitals - Most Recent: Last Vital Signs Temp 36.7 C 12/30/19 04:38 Pulse 86 12/30/19 04:38 Resp 16 12/30/19 04:38 BP 113/70 12/30/19 04:38 Pulse Ox 94 L 12/30/19 04:38 Weight - Most Recent: 145.15 kg I&O - Last 24 Hours: Intake & Output 12/29/19 12/30/19 12/30/19 22:59 06:59 14:59 Intake Total 3900 2400 Output Total 400 1500 Balance 3500 900 Med Orders - Current: Current Medications Hydromorphone HCl (Dilaudid) 0.5 mg IVPUSH Q1H PRN PRN Reason: Pain (severe 7-10) Oxycodone/Acetaminophen (Percocet 325-10 Mg) 2 tab PO Q4H PRN PRN Reason: Pain Last Admin: 12/30/19 07:25 Dose: 2 tab Documented by: Sodium Chloride (Saline Flush) 2.5 ml FLUSH ASDIRECTED PRN PRN Reason: Keep Vein Open Sodium Chloride (Normal Saline) 10 ml IV ASDIRECTED PRN PRN Reason: IV Use Sodium Chloride (Saline Flush) 10 ml FLUSH ASDIRECTED PRN PRN Reason: Keep Vein Open Discontinued Medications Albuterol (Proventil Neb Soln) 2.5 mg NEB ONETIME PRN PRN Reason: Wheezing Atropine Sulfate (Atropine 0.1 Mg/Ml) 0.5 mg IVPUSH ASDIRECTED PRN PRN Reason: Hypo-perfusion Atropine Sulfate (Atropine 0.1 Mg/Ml) 1 mg IVPUSH ASDIRECTED PRN PRN Reason: Hypo-Perfusion Bupivacaine HCl (Marcaine 0.5%) Confirm Administered Dose 30 ml .ROUTE .STK-MED ONE Stop: 12/29/19 13:11 Cefazolin Sodium (Ancef) Confirm Administered Dose 2 gm .ROUTE .STK-MED ONE Stop: 12/29/19 13:38 Dextrose/Water (Dextrose 50% In Water) 50 ml IVPUSH ASDIRECTED PRN PRN Reason: Hypoglycemia Epinephrine HCl (Epinephrine 1:10,000) 1 mg IVPUSH ASDIRECTED PRN PRN Reason: ACLS Guidelines Fentanyl (Sublimaze) Confirm Administered Dose 250 mcg .ROUTE .STK-MED ONE Stop: 12/29/19 13:05 Fentanyl (Sublimaze) Confirm Administered Dose 100 mcg .ROUTE .STK-MED ONE Stop: 12/29/19 14:51 Fentanyl (Sublimaze) 50 - 100 mcg IVPUSH Q5M PRN PRN Reason: Pain Glycopyrrolate (Robinul) Confirm Administered Dose 0.4 mg .ROUTE .STK-MED ONE Stop: 12/29/19 13:04 Glycopyrrolate (Robinul) Confirm Administered Dose 0.2 mg .ROUTE .STK-MED ONE Stop: 12/29/19 13:42 Haloperidol Lactate (Haldol) 1 mg IM ONETIME ONE Stop: 12/29/19 16:59 Last Admin: 12/29/19 17:06 Dose: Not Given Documented by: Hydromorphone HCl (Dilaudid) 0.5 mg IVPUSH Q1H PRN PRN Reason: Pain (severe 7-10) Lactated Ringer's (Ringers, Lactated) 1,000 mls @ 125 mls/hr IV ASDIRECTED REDDY Last Admin: 12/29/19 12:06 Dose: 125 mls/hr Documented by: Cefazolin Sodium/Dextrose 2 gm (/ Premix) 50 mls @ 100 mls/hr IV ONETIME ONE Stop: 12/28/19 14:26 Sodium Chloride (Normal Saline) Confirm Administered Dose 20 mls @ as directed .ROUTE .STK-MED ONE Stop: 12/29/19 13:38 Lidocaine (Xylocaine-Mpf 2%) Confirm Administered Dose 5 ml .ROUTE .STK-MED ONE Stop: 12/29/19 13:04 Midazolam HCl (Versed 1 Mg/Ml) Confirm Administered Dose 2 mg .ROUTE .STK-MED ONE Stop: 12/29/19 13:05 Naloxone HCl (Narcan) 0.1 mg IVPUSH ASDIRECTED PRN PRN Reason: Respiratory Depression Ondansetron HCl (Zofran) Confirm Administered Dose 4 mg .ROUTE .STK-MED ONE Stop: 12/29/19 13:04 Propofol (Diprivan 20 Ml) Confirm Administered Dose 200 mg .ROUTE .STK-MED ONE Stop: 12/29/19 13:05 Propofol (Diprivan 20 Ml) Confirm Administered Dose 200 mg .ROUTE .STK-MED ONE Stop: 12/29/19 13:57 Rocuronium Lefors (Rocuronium Lefors) Confirm Administered Dose 50 mg .ROUTE .STK-MED ONE Stop: 12/29/19 14:11 Scopolamine (Transderm-Scop) Confirm Administered Dose 1.5 mg .ROUTE .STK-MED ONE Stop: 12/29/19 11:34 Last Admin: 12/29/19 11:34 Dose: 1.5 mg Documented by: Sepsis Event Note - Evaluation Sepsis Screening Result: No Definite Risk - Focused Exam Vital Signs: Vital Signs Temp Pulse Resp BP Pulse Ox 12/30/19 04:38 36.7 C 86 16 113/70 94 L 12/30/19 00:21 36.8 C 77 18 122/72 94 L 12/29/19 20:00 36.9 C 77 18 126/72 95 - Problem List & Annotations (1) Cholelithiasis SNOMED Code(s): 713108990 Code(s): K80.20 - CALCULUS OF GALLBLADDER W/O CHOLECYSTITIS W/O OBSTRUCTION Status: Acute Current Visit: Yes - My Orders Last 24 Hours: Active Orders 24 hr Category Date Time Status Blood Glucose Check, Bedside [RC] PRN Care 12/29/19 14:53 Active Communication Order [RC] ROUTINE Care 12/29/19 18:00 Active Notify Provider Vital Signs [RC] ASDIRECTED Care 12/29/19 14:53 Active Oxygen Therapy [RC] PRN Care 12/29/19 14:53 Active Pulse Oximetry [RC] ASDIRECTED Care 12/29/19 16:56 Active RT Aerosol Therapy [RC] ASDIRECTED Care 12/29/19 14:53 Active RT Aerosol Therapy [RC] ASDIRECTED Care 12/29/19 14:53 Active RT Aerosol Therapy [RC] ASDIRECTED Care 12/29/19 14:53 Active RT End Tidal CO2 Monitoring [RC] ASDIRECTED Care 12/29/19 16:56 Active RT Incentive Spirometry [RC] Q1HWA Care 12/29/19 16:57 Active Up ad Parvin [RC] ASDIRECTED Care 12/29/19 16:57 Active Vital Signs [RC] Q4H Care 12/29/19 16:58 Active Regular Diet [DIET] Diet 12/30/19 Breakfast Active Acetaminophen/oxyCODONE [Percocet 325-10 MG] Med 12/29/19 15:09 Active 2 tab PO Q4H PRN HYDROmorphone [Dilaudid] Med 12/30/19 07:11 Active 0.5 mg IVPUSH Q1H PRN Medication Orders Hydromorphone HCl (Dilaudid) 0.5 mg IVPUSH Q1H PRN PRN Reason: Pain (severe 7-10) Oxycodone/Acetaminophen (Percocet 325-10 Mg) 2 tab PO Q4H PRN PRN Reason: Pain Last Admin: 12/30/19 07:25 Dose: 2 tab Documented by: Admin: 12/29/19 20:20 Dose: 2 tab Documented by: SHWETHA Sodium Chloride (Saline Flush) 2.5 ml FLUSH ASDIRECTED PRN PRN Reason: Keep Vein Open Sodium Chloride (Normal Saline) 10 ml IV ASDIRECTED PRN PRN Reason: IV Use Sodium Chloride (Saline Flush) 10 ml FLUSH ASDIRECTED PRN PRN Reason: Keep Vein Open
--- NOTE | 2019-12-30 08:44 | PCM48HPAN ---
Post Anesthesia Note - EVALUATION WITHIN 48HRS OF ANESTHETIC Vital Signs in Normal Range: Yes Patient Participated in Evaluation: Yes Respiratory Function Stable: Yes Airway Patent: Yes Cardiovascular Function Stable: Yes Hydration Status Stable: Yes Pain Control Satisfactory: Yes Nausea and Vomiting Control Satisfactory: Yes Mental Status Recovered: Yes Vital Signs: Last Vital Signs Temp 36.7 C 12/30/19 04:38 Pulse 86 12/30/19 04:38 Resp 16 12/30/19 04:38 BP 113/70 12/30/19 04:38 Pulse Ox 94 L 12/30/19 04:38 - COMMENTS/OBSERVATIONS Free Text/Narrative:: The patient tolerated the procedure well. There were no apparent anesthetic complications at this time. Discharge per criteria.
--- NOTE | 2019-12-30 09:28 | PCM.POSTAN ---
POST ANESTHESIA ASSESSMENT - MENTAL STATUS Mental Status: Alert, Oriented - VITAL SIGNS Vital Signs: Last Vital Signs Temp 98.1 F 12/30/19 04:38 Pulse 86 12/30/19 04:38 Resp 16 12/30/19 04:38 BP 113/70 12/30/19 04:38 Pulse Ox 94 L 12/30/19 04:38 - RESPIRATORY Respiratory Status: Respiratory Rate WNL, Airway Patent - CARDIOVASCULAR CV Status: Pulse Rate WNL, Blood Pressure Stable - GASTROINTESTINAL GI Status: No Symptoms - POST OP HYDRATION Hydration Status: Adequate & Stable - OBSERVATIONS Free Text/Narrative:: persistent desaturations on nasal and face mask oxygen, have advised 23 hr stay with spo2 and etco2 monitoring
--- NOTE | 2019-12-30 11:09 | PCM.SURGPN ---
- General Info Date of Service: 12/30/19 Date of Surgery/Procedure: 12/21/19 POD#: 8 Functional Status: Reports: Pain Controlled, Tolerating Diet, Ambulating, Urinating. Denies: New Symptoms - Review of Systems General: Reports: No Symptoms HEENT: Reports: No Symptoms Pulmonary: Reports: No Symptoms Cardiovascular: Reports: No Symptoms Gastrointestinal: Reports: No Symptoms Genitourinary: Reports: No Symptoms - Patient Data Vitals - Most Recent: Last Vital Signs Temp 37.7 C 12/30/19 08:00 Pulse 91 12/30/19 08:00 Resp 16 12/30/19 08:00 BP 107/71 12/30/19 08:00 Pulse Ox 96 12/30/19 08:00 Weight - Most Recent: 145.15 kg I&O - Last 24 Hours: Intake & Output 12/29/19 12/30/19 12/30/19 22:59 06:59 14:59 Intake Total 3900 2400 Output Total 400 1500 Balance 3500 900 Med Orders - Current: Current Medications Hydromorphone HCl (Dilaudid) 0.5 mg IVPUSH Q1H PRN PRN Reason: Pain (severe 7-10) Oxycodone/Acetaminophen (Percocet 325-10 Mg) 2 tab PO Q4H PRN PRN Reason: Pain Last Admin: 12/30/19 07:25 Dose: 2 tab Documented by: Sodium Chloride (Saline Flush) 2.5 ml FLUSH ASDIRECTED PRN PRN Reason: Keep Vein Open Sodium Chloride (Normal Saline) 10 ml IV ASDIRECTED PRN PRN Reason: IV Use Sodium Chloride (Saline Flush) 10 ml FLUSH ASDIRECTED PRN PRN Reason: Keep Vein Open Discontinued Medications Albuterol (Proventil Neb Soln) 2.5 mg NEB ONETIME PRN PRN Reason: Wheezing Atropine Sulfate (Atropine 0.1 Mg/Ml) 0.5 mg IVPUSH ASDIRECTED PRN PRN Reason: Hypo-perfusion Atropine Sulfate (Atropine 0.1 Mg/Ml) 1 mg IVPUSH ASDIRECTED PRN PRN Reason: Hypo-Perfusion Bupivacaine HCl (Marcaine 0.5%) Confirm Administered Dose 30 ml .ROUTE .STK-MED ONE Stop: 12/29/19 13:11 Cefazolin Sodium (Ancef) Confirm Administered Dose 2 gm .ROUTE .STK-MED ONE Stop: 12/29/19 13:38 Dextrose/Water (Dextrose 50% In Water) 50 ml IVPUSH ASDIRECTED PRN PRN Reason: Hypoglycemia Epinephrine HCl (Epinephrine 1:10,000) 1 mg IVPUSH ASDIRECTED PRN PRN Reason: ACLS Guidelines Fentanyl (Sublimaze) Confirm Administered Dose 250 mcg .ROUTE .STK-MED ONE Stop: 12/29/19 13:05 Fentanyl (Sublimaze) Confirm Administered Dose 100 mcg .ROUTE .STK-MED ONE Stop: 12/29/19 14:51 Fentanyl (Sublimaze) 50 - 100 mcg IVPUSH Q5M PRN PRN Reason: Pain Glycopyrrolate (Robinul) Confirm Administered Dose 0.4 mg .ROUTE .STK-MED ONE Stop: 12/29/19 13:04 Glycopyrrolate (Robinul) Confirm Administered Dose 0.2 mg .ROUTE .STK-MED ONE Stop: 12/29/19 13:42 Haloperidol Lactate (Haldol) 1 mg IM ONETIME ONE Stop: 12/29/19 16:59 Last Admin: 12/29/19 17:06 Dose: Not Given Documented by: Hydromorphone HCl (Dilaudid) 0.5 mg IVPUSH Q1H PRN PRN Reason: Pain (severe 7-10) Lactated Ringer's (Ringers, Lactated) 1,000 mls @ 125 mls/hr IV ASDIRECTED REDDY Last Admin: 12/29/19 12:06 Dose: 125 mls/hr Documented by: Cefazolin Sodium/Dextrose 2 gm (/ Premix) 50 mls @ 100 mls/hr IV ONETIME ONE Stop: 12/28/19 14:26 Sodium Chloride (Normal Saline) Confirm Administered Dose 20 mls @ as directed .ROUTE .STK-MED ONE Stop: 12/29/19 13:38 Lidocaine (Xylocaine-Mpf 2%) Confirm Administered Dose 5 ml .ROUTE .STK-MED ONE Stop: 12/29/19 13:04 Midazolam HCl (Versed 1 Mg/Ml) Confirm Administered Dose 2 mg .ROUTE .STK-MED ONE Stop: 12/29/19 13:05 Naloxone HCl (Narcan) 0.1 mg IVPUSH ASDIRECTED PRN PRN Reason: Respiratory Depression Ondansetron HCl (Zofran) Confirm Administered Dose 4 mg .ROUTE .STK-MED ONE Stop: 12/29/19 13:04 Propofol (Diprivan 20 Ml) Confirm Administered Dose 200 mg .ROUTE .STK-MED ONE Stop: 12/29/19 13:05 Propofol (Diprivan 20 Ml) Confirm Administered Dose 200 mg .ROUTE .STK-MED ONE Stop: 12/29/19 13:[address] (Rocuronium Circle) Confirm Administered Dose 50 mg .ROUTE .STK-MED ONE Stop: 12/29/19 14:11 Scopolamine (Transderm-Scop) Confirm Administered Dose 1.5 mg .ROUTE .STK-MED ONE Stop: 12/29/19 11:34 Last Admin: 12/29/19 11:34 Dose: 1.5 mg Documented by: - Exam Wound/Incisions: Other (Serosanguinous drainage on right flank and middle port sites. ) General: Alert, Oriented Lungs: Normal Respiratory Effort Cardiovascular: Regular Rate GI/Abdominal Exam: Soft, Non-Tender, No Distention, No Mass Skin: Warm, Dry, Intact Neurological: No New Focal Deficit Psy/Mental Status: Alert, Normal Affect, Normal Mood Sepsis Event Note - Evaluation Sepsis Screening Result: No Definite Risk - Focused Exam Vital Signs: Vital Signs Temp Pulse Resp BP Pulse Ox 12/30/19 08:00 37.7 C 91 16 107/71 96 12/30/19 04:38 36.7 C 86 16 113/70 94 L 12/30/19 00:21 36.8 C 77 18 122/72 94 L - Problem List & Annotations (1) Cholelithiasis SNOMED Code(s): 667433885 Code(s): K80.20 - CALCULUS OF GALLBLADDER W/O CHOLECYSTITIS W/O OBSTRUCTION Status: Acute Current Visit: Yes - Problem List Review Problem List Initiated/Reviewed/Updated: Yes - My Orders Last 24 Hours: Active Orders 24 hr Category Date Time Status Blood Glucose Check, Bedside [RC] PRN Care 12/29/19 14:53 Active Communication Order [RC] ROUTINE Care 12/29/19 18:00 Active Notify Provider Vital Signs [RC] ASDIRECTED Care 12/29/19 14:53 Active Oxygen Therapy [RC] PRN Care 12/29/19 14:53 Active Pulse Oximetry [RC] ASDIRECTED Care 12/29/19 16:56 Active RT Aerosol Therapy [RC] ASDIRECTED Care 12/29/19 14:53 Active RT Aerosol Therapy [RC] ASDIRECTED Care 12/29/19 14:53 Active RT Aerosol Therapy [RC] ASDIRECTED Care 12/29/19 14:53 Active RT End Tidal CO2 Monitoring [RC] ASDIRECTED Care 12/29/19 16:56 Active RT Incentive Spirometry [RC] Q1HWA Care 12/29/19 16:57 Active Ready for Discharge [RC] PER UNIT ROUTINE Care 12/30/19 07:38 Active Up ad Parvin [RC] ASDIRECTED Care 12/29/19 16:57 Active Vital Signs [RC] Q4H Care 12/29/19 16:58 Active Regular Diet [DIET] Diet 12/30/19 Breakfast Active Acetaminophen/oxyCODONE [Percocet 325-10 MG] Med 12/29/19 15:09 Active 2 tab PO Q4H PRN HYDROmorphone [Dilaudid] Med 12/30/19 07:11 Active 0.5 mg IVPUSH Q1H PRN Medication Orders Hydromorphone HCl (Dilaudid) 0.5 mg IVPUSH Q1H PRN PRN Reason: Pain (severe 7-10) Oxycodone/Acetaminophen (Percocet 325-10 Mg) 2 tab PO Q4H PRN PRN Reason: Pain Last Admin: 12/30/19 07:25 Dose: 2 tab Documented by: Admin: 12/29/19 20:20 Dose: 2 tab Documented by: SHWETHA Sodium Chloride (Saline Flush) 2.5 ml FLUSH ASDIRECTED PRN PRN Reason: Keep Vein Open Sodium Chloride (Normal Saline) 10 ml IV ASDIRECTED PRN PRN Reason: IV Use Sodium Chloride (Saline Flush) 10 ml FLUSH ASDIRECTED PRN PRN Reason: Keep Vein Open - Plan Plan (Free Text/Narrative):: Patient was weaned off oxygen this morning. Currently saturating 91-92% on room air while sitting up. Likely undiagnosed sleep apnea. He feels well and offers no complaints. Pain is well controlled on oral medications. Other vitals stable. Ok to discharge home with IS.
[2019-12-30 13:13] VITALS: BP 114/65; PULSE 66
== END 2019-12-30 13:45 | disposition home or self-care (01) ==
LOC: MW.SDS 10:06 → MW.MS 17:22 → MW.SDS 12-30 13:45
PROVIDERS: ATTEND Surgery
DX: K81.1 Chronic cholecystitis (principal); F41.8 Other specified anxiety disorders; J45.909 Unspecified asthma, uncomplicated; R74.01 Elevation of levels of liver transaminase levels; K76.0 Fatty (change of) liver, not elsewhere classified; E66.9 Obesity, unspecified; Z68.41 Body mass index [BMI] 40.0-44.9, adult; Z79.899 Other long term (current) drug therapy; Z87.891 Personal history of nicotine dependence
CPT/HCPCS: 47562; 88304; A9270; J0690; J2001; J2250; J2405; J2704; J3010; J3490; J7120

== ENCOUNTER 2021-05-23 05:47 | Day surgery (SDC) | payer OTHER ==
[~2021-05-23 05:47] MED LIST changes: -Sodium Chloride 0.9% 10 ML SDV IV PRN; +Sodium Chloride 0.9% 20 ML SDV IV PRN; -ceFAZolin 2 GM in Premix Bag 1 BAG IV ONE
[2021-05-23] MEDS ORDERED: Ondansetron 4 MG/2 ML SDV ONE (06:14)
[2021-05-23] MEDS ORDERED: Propofol 200 MG/20 ML SDV ONE (06:15)
[2021-05-23] MEDS ORDERED: fentaNYL 100 MCG/2 ML SDV ONE (06:15)
[2021-05-23] MEDS ORDERED: Glycopyrrolate 0.2 MG/ML SDV ONE (06:15)
[2021-05-23] MEDS ORDERED: Midazolam 1 MG/ML 2 ML SDV ONE (06:15)
[2021-05-23] MEDS ORDERED: Lidocaine 2% 5 ML SDV ONE (06:25)
[2021-05-23] MEDS ORDERED: Albuterol 0.083% 2.5 MG/3 ML Neb Soln NEB PRN (06:45)
[2021-05-23] MEDS ORDERED: HYDROmorphone 1 MG/ML Syringe IVPUSH PRN (06:45)
[2021-05-23] MEDS ORDERED: Naloxone 0.4 MG/ML SDV IVPUSH PRN (06:45)
[2021-05-23] MEDS ORDERED: Metoclopramide 10 MG/2 ML SDV IVPUSH PRN (06:45)
[2021-05-23] MEDS ORDERED: fentaNYL 100 MCG/2 ML SDV IVPUSH PRN (06:45)
[2021-05-23] MEDS ORDERED: Ondansetron 4 MG/2 ML SDV IVPUSH PRN (06:45)
[2021-05-23] MEDS ORDERED: Water For Injection, Sterile 20 ML ONE (07:12)
[2021-05-23] MEDS ORDERED: cefOXitin 1 GM Vial ONE (07:12)
[2021-05-23] MEDS ORDERED: Dexamethasone 4 MG/ML 5 ML MDV ONE (07:13)
[2021-05-23] MEDS ORDERED: Octyl 2-Cyanoacrylate 1 Tube ONE (07:24)
[2021-05-23] MEDS ORDERED: Bupivacaine 0.5% 30 ML SDV ONE (07:37)
[2021-05-23 08:54] VITALS: BP 140/71; PULSE 85
== END 2021-05-23 09:00 | disposition home or self-care (01) ==
LOC: MW.SDS 05:47
PROVIDERS: ATTEND Surgery
DX: L05.01 Pilonidal cyst with abscess (principal); L91.8 Other hypertrophic disorders of the skin; E66.01 Morbid (severe) obesity due to excess calories; J45.909 Unspecified asthma, uncomplicated; Z91.048 Other nonmedicinal substance allergy status; Z87.891 Personal history of nicotine dependence; Z68.42 Body mass index [BMI] 45.0-49.9, adult; Z98.890 Other specified postprocedural states; Z90.49 Acquired absence of other specified parts of digestive tract; Z79.899 Other long term (current) drug therapy
CPT/HCPCS: 11200; 11770; A9270; J0694; J1100; J2250; J2704; J3490; J7120; 00300; J2405; J3010